=== PATIENT | male | born 1950 | race Caucasian/White ===

== ENCOUNTER 2016-04-27 06:25 | Day surgery (SDC) | payer BC ==
[2016-04-27] MEDS ORDERED: SIMETHICONE 40 MG/0.6 ML ML ONE (06:49)
[2016-04-27] MEDS: fentaNYL CITRATE/PF 100 MCG/2 ML AMP ONE ×3 (07:14→07:20)
[2016-04-27] MEDS: MIDAZOLAM HCL 5 MG/5 ML VIAL ONE ×4 (07:14→07:22)
[2016-04-27 10:14] VITALS: BP 117/79; PULSE 67; RESP 18
== END 2016-04-27 08:20 | disposition home or self-care (01) ==
LOC: SDS 06:25 → SMU 06:34 → SDS 08:20
PROVIDERS: ATTEND Colon & Rectal Surgery
DX: K64.8 Other hemorrhoids (principal); K57.30 Diverticulosis of large intestine without perforation or abscess without bleeding
CPT/HCPCS: 45378; J2250; J3010; J7030